=== PATIENT | female | born 1955 | race African-American/Black ===

== ENCOUNTER 2018-12-14 09:00 | Inpatient (IN) | payer MEDICAID ==
[~2018-12-14] VITALS: Ht 160 cm; Wt 74.4 kg
[2018-12-14] MEDS ORDERED: SODIUM CHLORIDE 0.9% 1,000 ML IV ONE (09:17)
[2018-12-14] MEDS ORDERED: MORPHINE SULFATE 4 MG/ML CPJ (NOT FOR IM USE) IV ONE (09:30)
[2018-12-14] MEDS ORDERED: ONDANSETRON HCL 4MG/2ML INJ IV ONE (09:30)
[2018-12-14 10:13] LABS: BASOPHILS % 0.9 % (0.0-2.0); EOSINOPHILS % 0.1 % (0.0-5.0); HEMOGLOBIN. 12.7 g/dL (12.0-16.0); LYMPHOCYTES % 12.1 % (20.0-50.0); MEAN CORPUSCULAR HEMOGLOBIN 29.6 pg (28.0-32.0); MEAN CORPUSCULAR VOLUME 86.3 fL (81.0-99.0); MEAN PLATELET VOLUME 8.1 fl (7.4-10.4); MONOCYTES % 3.5 % (2.0-8.0); NEUTROPHILS % 83.4 % (40.0-76.0); PLATELET 423 x1000/uL (130-400); RED BLOOD CELL COUNT 4.29 mill/uL (4.2-5.4); RED CELL DISTRIBUTION WIDTH 14.6 % (11.6-14.6)
[2018-12-14 10:20] LABS: CHLORIDE 99 mEq/L (98-107)
[2018-12-14 10:26] LABS: D-DIMER 1.68 mg/L FEU (<0.50); INR 1.2; PARTIAL THROMBOPLASTIN TIME 31.6 sec (23.4-31.0)
[2018-12-14] MEDS ORDERED: IOHEXOL-350 100 ML BOTTLE ONE (11:36)
[2018-12-14 14:30] VITALS: BP 156/77
[2018-12-14] MEDS ORDERED: CLONIDINE 0.1MG TABLET PO PRN (15:15)
[2018-12-14] MEDS ORDERED: NA PHOS,M-B/NA PHOS,DI-BA ENEMA 118ML PR PRN (15:15)
[2018-12-14] MEDS ORDERED: DOCUSATE SODIUM 250MG CAPSULE PO PRN (15:15)
[2018-12-14] MEDS ORDERED: HYDROCODONE/ACETAMINOPHEN 10/325MG TABLET PO PRN (15:15)
[2018-12-14 16:00] VITALS: BP 151/90
[2018-12-14] MEDS: ASPIRIN 81MG TABLET PO SCH (17:31)
[2018-12-14] MEDS: ONDANSETRON HCL 4MG/2ML INJ IV PRN ×2 (17:32→21:11)
[2018-12-14] MEDS: ENOXAPARIN 40MG/0.4ML SYR SUBCUT SCH (17:32)
[2018-12-14] MEDS: DOCUSATE SODIUM 100MG CAPSULE PO PRN (19:08)
[2018-12-14 20:00] VITALS: BP 130/77
[2018-12-14] MEDS ORDERED: MAGNESIUM/ALUMINUM HYDROXIDE/SIMETHICONE 30ML UDC PO PRN (20:45)
[2018-12-14] MEDS ORDERED: DIPHENHYDRAMINE 50MG/ML VIAL IV PRN (20:45)
[2018-12-14] MEDS ORDERED: IPRATROPIUM/ALBUTEROL 0.5-3(2.5)MG/3ML NEB INH PRN (20:45)
[2018-12-14] MEDS ORDERED: LORAZEPAM 2MG/ML CPJ IV PRN (20:45)
[2018-12-14] MEDS ORDERED: ACETAMINOPHEN 325MG TABLET PO PRN (20:45)
[2018-12-14] MEDS ORDERED: HYDRALAZINE 20MG/ML VIAL IV PRN (20:45)
[2018-12-14] MEDS ORDERED: GUAIFENESIN 200MG/10ML SUGAR FREE UDC PO PRN (20:45)
[2018-12-14] MEDS: SODIUM CHLORIDE 0.9% INJ 3ML FLUSH IVF SCH (21:11)
[2018-12-14 23:38] LABS: CREATINE KINASE 111 IU/L (26-192)
[2018-12-14 23:39] LABS: CREATINE KINASE MB FRACTION < 1.0 ng/mL (0.5-3.6)
[2018-12-15] VITALS (7 sets, daily range): BP systolic 110–159; BP diastolic 72–108
[2018-12-15] MEDS: ONDANSETRON HCL 4MG/2ML INJ IV PRN ×2 (05:41→17:29)
[2018-12-15] MEDS: DOCUSATE SODIUM 100MG CAPSULE PO PRN (05:41)
[2018-12-15] MEDS: SODIUM CHLORIDE 0.9% INJ 3ML FLUSH IVF SCH ×3 (05:54→21:29)
[2018-12-15 08:03] LABS: BASOPHILS % 0.8 % (0.0-2.0); EOSINOPHILS % 2.3 % (0.0-5.0); HEMATOCRIT. 36.1 % (36.0-48.0); HEMOGLOBIN. 12.1 g/dL (12.0-16.0); LYMPHOCYTES % 20.2 % (20.0-50.0); MEAN CORPUSCULAR HEMOGLOBIN 29.1 pg (28.0-32.0); MEAN CORPUSCULAR VOLUME 86.6 fL (81.0-99.0); MEAN PLATELET VOLUME 7.9 fl (7.4-10.4); MONOCYTES % 7.6 % (2.0-8.0); NEUTROPHILS % 69.1 % (40.0-76.0); PLATELET 404 x1000/uL (130-400); RED BLOOD CELL COUNT 4.17 mill/uL (4.2-5.4)
[2018-12-15 08:36] LABS: CHLORIDE 104 mEq/L (98-107)
[2018-12-15 08:49] LABS: LDL CHOLESTEROL 115 mg/dL (5-100)
[2018-12-15 08:50] LABS: CREATINE KINASE 111 IU/L (26-192)
[2018-12-15 08:51] LABS: HDL CHOLESTEROL 71 mg/dL (40-59); T4 FREE 1.15 ng/dL (0.76-1.46)
[2018-12-15 08:59] LABS: CREATINE KINASE MB FRACTION < 1.0 ng/mL (0.5-3.6)
[2018-12-15] MEDS: ASPIRIN 81MG TABLET PO SCH (09:00)
[2018-12-15] MEDS ORDERED: BISACODYL 10MG SUPP PR NR (10:15)
[2018-12-15] MEDS ORDERED: HYDRALAZINE 20MG/ML VIAL IV PRN (10:15)
[2018-12-15] MEDS: METOCLOPRAMIDE HCL 10MG/2ML VIAL IV PRN ×2 (10:38→20:42)
[2018-12-15] MEDS ORDERED: POTASSIUM CHLORIDE INJ 40 MEQ in DEXT 5% WATER 250 ML IV NR (12:00)
[2018-12-15] MEDS ORDERED: SORBITOL 70% SOLN 30ML PO NR (12:30)
[2018-12-15] MEDS: FAMOTIDINE 20MG/2ML VIAL IV SCH (14:12)
[2018-12-15] MEDS: SODIUM CHLORIDE 0.45% 1,000 ML IV SCH (14:13)
[2018-12-15 15:39] LABS: CREATINE KINASE 105 IU/L (26-192)
[2018-12-15 15:44] LABS: CREATINE KINASE MB FRACTION < 1.0 ng/mL (0.5-3.6)
[2018-12-15] MEDS: ENOXAPARIN 40MG/0.4ML SYR SUBCUT SCH (17:30)
[2018-12-15 19:30] LABS: T4 FREE 1.13 ng/dL (0.76-1.46)
[2018-12-16] VITALS: BP 147/74
[2018-12-16 01:24] LABS: CREATINE KINASE 99 IU/L (26-192)
[2018-12-16 04:00] VITALS: BP 155/88
[2018-12-16] MEDS: SODIUM CHLORIDE 0.9% INJ 3ML FLUSH IVF SCH ×3 (06:42→22:49)
[2018-12-16 07:46] LABS: CREATINE KINASE 95 IU/L (26-192)
[2018-12-16 08:00] VITALS: BP 143/75
[2018-12-16] MEDS: SODIUM CHLORIDE 0.45% 1,000 ML IV SCH (09:53)
[2018-12-16] MEDS: FAMOTIDINE 20MG/2ML VIAL IV SCH (09:53)
[2018-12-16] MEDS: ASPIRIN 81MG TABLET PO SCH (09:53)
[2018-12-16] MEDS ORDERED: GADOBENATE DIMEGLUMINE 529 MG/ML 10ML IV ONE (11:46)
[2018-12-16 12:00] VITALS: BP 133/77
[2018-12-16 16:00] VITALS: BP 149/75
[2018-12-16] MEDS: ENOXAPARIN 40MG/0.4ML SYR SUBCUT SCH (17:34)
[2018-12-16 20:00] VITALS: BP 145/70
[2018-12-17] VITALS: BP 157/88
[2018-12-17] MEDS: SODIUM CHLORIDE 0.45% 1,000 ML IV SCH (02:15)
[2018-12-17 04:00] VITALS: BP 125/77
[2018-12-17] MEDS: SODIUM CHLORIDE 0.9% INJ 3ML FLUSH IVF SCH ×2 (07:07→14:23)
[2018-12-17 08:30] VITALS: BP 130/80
[2018-12-17] MEDS: FAMOTIDINE 20MG/2ML VIAL IV SCH (08:41)
[2018-12-17] MEDS: ASPIRIN 81MG TABLET PO SCH (08:59)
[2018-12-17 10:47] VITALS: BP 152/68
[2018-12-17 12:13] VITALS: BP 146/72
[2018-12-17 16:00] VITALS: BP 140/63
[2018-12-17] MEDS: ENOXAPARIN 40MG/0.4ML SYR SUBCUT SCH (17:18)
== END 2018-12-17 20:32 | disposition home or self-care (01) | DRG 282 ==
LOC: ER 09:00 → 5WST 11:40 → EDBEDREQ 11:45 → ENRESERV 13:30
PROVIDERS: ADMIT Internal Medicine; ATTEND Internal Medicine
DX: K86.89 Other specified diseases of pancreas (principal); E66.9 Obesity, unspecified; R07.89 Other chest pain; E87.6 Hypokalemia; I10 Essential (primary) hypertension; K21.9 Gastro-esophageal reflux disease without esophagitis; K59.00 Constipation, unspecified; Z79.899 Other long term (current) drug therapy; Z88.2 Allergy status to sulfonamides; Z88.8 Allergy status to other drugs, medicaments and biological substances; Z68.29 Body mass index [BMI] 29.0-29.9, adult
CPT/HCPCS: 36415; 71045; 71275; 74174; 74183; 80061; 82550; 82553; 83036; 83880; 84439; 84443; 84484; 85379; 86301; 93005; 93306; 96372; 99285; A9577; J0360; J1200; J1650; J2060; J2270; J2405; J2765; J3480; J3490; J7030; J7060; Q9967

== ENCOUNTER 2019-06-12 14:02 | Inpatient (IN) | payer MEDICAID ==
[~2019-06-12] VITALS: Ht 160 cm; Wt 61.7 kg
[2019-06-12] MEDS ORDERED: MORPHINE SULFATE 4 MG/ML CPJ (NOT FOR IM USE) IV STA (15:02)
[2019-06-12] MEDS ORDERED: SODIUM CHLORIDE 0.9% 1,000 ML IV ONE (15:02)
[2019-06-12] MEDS ORDERED: ONDANSETRON HCL 4MG/2ML INJ IV STA (15:02)
[2019-06-12] MEDS ORDERED: FAMOTIDINE 20MG/2ML VIAL IV ONE (15:15)
[2019-06-12] MEDS ORDERED: DIPHENHYDRAMINE 50MG/ML VIAL IV ONE (15:15)
[2019-06-12] MEDS ORDERED: MAGNESIUM/ALUMINUM HYDROXIDE/SIMETHICONE 30ML UDC PO ONE (15:15)
[2019-06-12 15:19] LABS: BASOPHILS % 0.6 % (0.0-2.0); EOSINOPHILS % 0.7 % (0.0-5.0); HEMATOCRIT. 35.1 % (36.0-48.0); HEMOGLOBIN. 11.9 g/dL (12.0-16.0); LYMPHOCYTES % 13.7 % (20.0-50.0); MEAN CORPUSCULAR HEMOGLOBIN 30.5 pg (28.0-32.0); MEAN PLATELET VOLUME 8.4 fl (7.4-10.4); MONOCYTES % 7.7 % (2.0-8.0); NEUTROPHILS % 77.3 % (40.0-76.0); PLATELET 295 x1000/uL (130-400); RED CELL DISTRIBUTION WIDTH 18.2 % (11.6-14.6)
[2019-06-12 15:23] LABS: CHLORIDE 102 mEq/L (98-107)
[2019-06-12 15:29] LABS: INR 1.5; PARTIAL THROMBOPLASTIN TIME 31.6 sec (23.4-31.0); PROTHROMBIN TIME 15.1 sec (9.6-11.0)
[2019-06-12 15:30] LABS: ETHANOL BLOOD < 10 mg/dL
[2019-06-12 16:36] LABS: CLARITY URINE CLEAR (CLEAR); COLOR URINE YELLOW (YELLOW); KETONES URINE NEGATIVE (NEGATIVE); LEUKOCYTE ESTERASE URINE 3+ (NEGATIVE); NITRITE URINE NEGATIVE (NEGATIVE); OCCULT BLOOD URINE NEGATIVE (NEGATIVE); PH URINE 8.5 (4.5-8.0); PROTEIN URINE TRACE (NEGATIVE); SPECIFIC GRAVITY URINE 1.005 (1.005-1.030); UROBILINOGEN URINE 0.2 E.U./dL (0.2-1.0)
[2019-06-12 16:46] LABS: OPIATES URINE SCREEN NEGATIVE (NEGATIVE)
[2019-06-12 16:48] LABS: *AMPHETAMINES SCREEN URINE NEGATIVE (NEGATIVE); *BARBITURATES SCREEN URINE NEGATIVE (NEGATIVE); *BENZODIAZEPINES SCREEN URINE NEGATIVE (NEGATIVE); *COCAINE SCREEN URINE NEGATIVE (NEGATIVE); CANNABINOID URINE SCREEN NEGATIVE (NEGATIVE); METHADONE URINE SCREEN NEGATIVE (NEGATIVE); PHENCYCLIDINE URINE SCREEN NEGATIVE (NEGATIVE)
[2019-06-12] MEDS ORDERED: KCL 20MEQ/100ML PREMIX 100 ML IV ONE (17:15)
[2019-06-12] MEDS ORDERED: ONDANSETRON HCL 4MG/2ML INJ IV ONE (17:30)
[2019-06-12] MEDS ORDERED: MORPHINE SULFATE 4 MG/ML CPJ (NOT FOR IM USE) IV ONE (17:30)
[2019-06-12] MEDS ORDERED: ACETAMINOPHEN 325MG TABLET PO PRN (18:45)
[2019-06-12] MEDS ORDERED: MAGNESIUM/ALUMINUM HYDROXIDE/SIMETHICONE 30ML UDC PO PRN (18:45)
[2019-06-12] MEDS ORDERED: MAGNESIUM 2 G PREMIX 50 ML IV ONE (18:45)
[2019-06-12] MEDS ORDERED: POTASSIUM CHLORIDE INJ 40 MEQ in DEXT 5% WATER 250 ML IV ONE (18:45)
[2019-06-12] MEDS ORDERED: ONDANSETRON HCL 4MG/2ML INJ IV PRN (18:45)
[2019-06-12] MEDS ORDERED: IPRATROPIUM/ALBUTEROL 0.5-3(2.5)MG/3ML NEB HHN PRN (18:45)
[2019-06-12] MEDS ORDERED: MORPHINE SULFATE 2 MG/ML CPJ (NOT FOR IM USE) IV PRN (19:00)
[2019-06-12] MEDS ORDERED: HYDROCODONE/ACETAMINOPHEN 5/325MG TABLET PO PRN (19:00)
[2019-06-12] MEDS ORDERED: HYDROMORPHONE HCL/PF 2MG/ML CPJ IV PRN (19:00)
[2019-06-12 21:25] VITALS: BP 133/64
[2019-06-12] MEDS ORDERED: POTASSIUM CHLORIDE INJ 40 MEQ in DEXT 5% WATER 250 ML IV SCH (21:45)
[2019-06-12] MEDS ORDERED: DEXT 5%/0.45% NACL KCL 30MEQ/L 1,000 ML IV ONE (22:00)
[2019-06-12] MEDS ORDERED: ONDA4TAB5 MT (23:51)
[2019-06-13] VITALS: BP 133/87
[2019-06-13 01:08] LABS: CREATINE KINASE MB FRACTION < 1.0 ng/mL (0.5-3.6)
[2019-06-13 04:00] VITALS: BP 131/84
[2019-06-13] MEDS ORDERED: MAGNESIUM 2 G PREMIX 50 ML IV SCH (04:00)
[2019-06-13 08:00] VITALS: BP 156/80
[2019-06-13 08:36] LABS: BASOPHILS % 1.3 % (0.0-2.0); EOSINOPHILS % 3.7 % (0.0-5.0); HEMOGLOBIN. 10.7 g/dL (12.0-16.0); LYMPHOCYTES % 22.1 % (20.0-50.0); MEAN CORPUSCULAR HEMOGLOBIN 30.1 pg (28.0-32.0); MEAN PLATELET VOLUME 8.6 fl (7.4-10.4); MONOCYTES % 11.3 % (2.0-8.0); NEUTROPHILS % 61.6 % (40.0-76.0); PLATELET 279 x1000/uL (130-400); RED BLOOD CELL COUNT 3.55 mill/uL (4.2-5.4); RED CELL DISTRIBUTION WIDTH 18.3 % (11.6-14.6)
[2019-06-13 08:38] LABS: CHLORIDE 107 mEq/L (98-107)
[2019-06-13 08:59] LABS: CREATINE KINASE MB FRACTION < 1.0 ng/mL (0.5-3.6)
[2019-06-13] MEDS: DOCUSATE SODIUM 250MG CAPSULE PO SCH (09:36)
[2019-06-13] MEDS: POTASSIUM CHLORIDE 20MEQ TABLET SR PO SCH ×2 (09:36→18:43)
[2019-06-13] MEDS: FAMOTIDINE 20MG/2ML VIAL IV SCH ×2 (09:37→22:17)
[2019-06-13] MEDS: ENOXAPARIN 40MG/0.4ML SYR SUBCUT SCH (09:48)
[2019-06-13 12:00] VITALS: BP 157/80
[2019-06-13] MEDS: CLONIDINE 0.1MG TABLET PO PRN (14:46)
[2019-06-13 16:00] VITALS: BP 147/86
[2019-06-13 20:00] VITALS: BP 135/69
[2019-06-14] VITALS: BP 165/84
[2019-06-14 04:00] VITALS: BP 156/83
[2019-06-14 08:00] VITALS: BP 170/92
[2019-06-14 08:38] LABS: BASOPHILS % 0.6 % (0.0-2.0); EOSINOPHILS % 2.7 % (0.0-5.0); HEMOGLOBIN. 10.9 g/dL (12.0-16.0); LYMPHOCYTES % 22.2 % (20.0-50.0); MEAN CORPUSCULAR HEMOGLOBIN 30.6 pg (28.0-32.0); MEAN CORPUSCULAR VOLUME 89.7 fL (81.0-99.0); MEAN PLATELET VOLUME 8.8 fl (7.4-10.4); MONOCYTES % 11.1 % (2.0-8.0); NEUTROPHILS % 63.4 % (40.0-76.0); PLATELET 302 x1000/uL (130-400); RED BLOOD CELL COUNT 3.56 mill/uL (4.2-5.4); RED CELL DISTRIBUTION WIDTH 18.2 % (11.6-14.6)
[2019-06-14] MEDS: FAMOTIDINE 20MG/2ML VIAL IV SCH (08:47)
[2019-06-14] MEDS: CLONIDINE 0.1MG TABLET PO PRN (08:47)
[2019-06-14] MEDS: POTASSIUM CHLORIDE 20MEQ TABLET SR PO SCH (08:47)
[2019-06-14] MEDS: DOCUSATE SODIUM 250MG CAPSULE PO SCH (08:47)
[2019-06-14] MEDS: ENOXAPARIN 40MG/0.4ML SYR SUBCUT SCH (08:49)
[2019-06-14 08:51] LABS: CHLORIDE 109 mEq/L (98-107)
[2019-06-14] MEDS ORDERED: DOCU250C14 PO (09:42)
[2019-06-14] MEDS ORDERED: PANT40TA4 MT (09:42)
[2019-06-14] MEDS ORDERED: ONDA4TAB5 MT (09:42)
[2019-06-14 11:21] VITALS: BP 155/88
[2019-06-14 12:00] VITALS: BP 155/88
[2019-06-14] MEDS ORDERED: HYDR-3281 MT (15:30)
== END 2019-06-14 14:25 | disposition home or self-care (01) | DRG 241 ==
LOC: ER 14:02 → 7WST 18:14 → EDBEDREQTM 18:17 → EDBEDREQ 18:17 → ENRESERV 20:38
PROVIDERS: ADMIT Internal Medicine Geriatric Medicine; ATTEND Internal Medicine Geriatric Medicine
DX: K29.70 Gastritis, unspecified, without bleeding (principal); C25.9 Malignant neoplasm of pancreas, unspecified; E86.0 Dehydration; D63.8 Anemia in other chronic diseases classified elsewhere; E78.00 Pure hypercholesterolemia, unspecified; E87.6 Hypokalemia; I10 Essential (primary) hypertension; Z88.6 Allergy status to analgesic agent; Z88.2 Allergy status to sulfonamides; Z92.21 Personal history of antineoplastic chemotherapy
CPT/HCPCS: 36415; 71045; 74176; 80053; 80305; 80320; 81003; 82553; 83605; 83735; 83880; 84484; 85025; 93005; 93306; 97162; 99285; J1200; J1650; J2270; J2405; J3475; J3480; J3490; J7030; J7060; G0480

== ENCOUNTER 2019-06-18 16:43 | Inpatient (IN) | payer MEDICAID ==
[~2019-06-18] VITALS: Ht 160 cm; Wt 63.5 kg
[~2019-06-18 16:43] MED LIST: DOCU250C14 PO; HYDR-3281 MT; ONDA4TAB5 MT; PANT40TA4 MT
[2019-06-18] MEDS ORDERED: KETOROLAC 30MG/ML VIAL IV STA (17:34)
[2019-06-18] MEDS ORDERED: ONDANSETRON HCL 4MG/2ML INJ IV STA (17:34)
[2019-06-18] MEDS ORDERED: SODIUM CHLORIDE 0.9% 1,000 ML IV ONE (17:34)
[2019-06-18 18:39] LABS: HEMATOCRIT. 34.6 % (36.0-48.0); HEMOGLOBIN. 11.8 g/dL (12.0-16.0); MEAN CORPUSCULAR HEMOGLOBIN 30.6 pg (28.0-32.0); MEAN CORPUSCULAR VOLUME 89.9 fL (81.0-99.0); MEAN PLATELET VOLUME 8.1 fl (7.4-10.4); PLATELET 316 x1000/uL (130-400); RED BLOOD CELL COUNT 3.85 mill/uL (4.2-5.4); RED CELL DISTRIBUTION WIDTH 17.7 % (11.6-14.6)
[2019-06-18 18:46] LABS: CHLORIDE 99 mEq/L (98-107)
[2019-06-18 18:49] LABS: INR 1.5; PARTIAL THROMBOPLASTIN TIME 32.7 sec (23.4-31.0); PROTHROMBIN TIME 15.4 sec (9.6-11.0)
[2019-06-18 19:05] LABS: CLARITY URINE CLOUDY (CLEAR); COLOR URINE ORANGE (YELLOW); KETONES URINE 3+ (NEGATIVE); LEUKOCYTE ESTERASE URINE 2+ (NEGATIVE); NITRITE URINE POSITIVE (NEGATIVE); OCCULT BLOOD URINE 1+ (NEGATIVE); PH URINE 6.5 (4.5-8.0); PROTEIN URINE 1+ (NEGATIVE); SPECIFIC GRAVITY URINE 1.021 (1.005-1.030)
[2019-06-18] MEDS ORDERED: CEFTRIAXONE 1 G PREMIX 50 ML IV ONE (19:15)
[2019-06-18 19:23] LABS: PLATELET ESTIMATE NORMAL
[2019-06-18] MEDS ORDERED: ONDANSETRON HCL 4MG/2ML INJ IV PRN (20:45)
[2019-06-18] MEDS ORDERED: ACETAMINOPHEN 650MG SUPP PR PRN (20:45)
[2019-06-19] MEDS ORDERED: HEPARIN 5000 UNITS/ML VIAL SUBCUT SCH ×2 (01:15→14:00)
[2019-06-19 06:07] LABS: HEMATOCRIT. 30.7 % (36.0-48.0); HEMOGLOBIN. 10.4 g/dL (12.0-16.0); MEAN CORPUSCULAR HEMOGLOBIN 30.2 pg (28.0-32.0); MEAN CORPUSCULAR VOLUME 88.8 fL (81.0-99.0); MEAN PLATELET VOLUME 8.1 fl (7.4-10.4); PLATELET 277 x1000/uL (130-400); RED BLOOD CELL COUNT 3.46 mill/uL (4.2-5.4); RED CELL DISTRIBUTION WIDTH 17.8 % (11.6-14.6)
[2019-06-19 06:13] LABS: CHLORIDE 103 mEq/L (98-107)
[2019-06-19 07:13] LABS: PLATELET ESTIMATE NORMAL
[2019-06-19] MEDS ORDERED: PIPERACILLIN/TAZOBACTAM 3.375 G in DEXTROSE 5% WATER 50 ML IV SCH (08:30)
[2019-06-19] MEDS ORDERED: [UNRECOGNIZED DRUG - MIXTURE] IV SCH (09:00)
[2019-06-19] MEDS: PIPERACILLIN/TAZ 2.25G PREMIX 50 ML IV SCH ×2 (09:50→14:04)
[2019-06-19] MEDS ORDERED: HYDROMORPHONE HCL/PF 2MG/ML CPJ IV PRN (11:00)
[2019-06-19] MEDS: HYDROMORPHONE HCL/PF 2MG/ML CPJ IV PRN ×2 (12:03→20:20)
[2019-06-19] MEDS ORDERED: HYDRALAZINE 20MG/ML VIAL IV PRN (12:45)
[2019-06-19] MEDS ORDERED: MAGNESIUM HYDROXIDE 400MG/5ML 30ML UDC PO PRN (14:15)
[2019-06-19] MEDS ORDERED: MAGNESIUM 2 G PREMIX 50 ML IV SCH (15:00)
[2019-06-19] MEDS: DOCUSATE SODIUM 250MG CAPSULE PO SCH (15:55)
[2019-06-19 16:00] VITALS: BP 152/85
[2019-06-19] MEDS: PANTOPRAZOLE SODIUM 40 MG/VIAL IV SCH (16:02)
[2019-06-19 16:07] VITALS: BP 152/85
[2019-06-19 16:25] VITALS: BP 152/85
[2019-06-19] MEDS: PIPERACILLIN/TAZOBACTAM 2.25 G in DEXTROSE 5% WATER 50 ML IV SCH (17:36)
[2019-06-19] MEDS ORDERED: PIPERACILLIN/TAZOBACTAM 3.375 G in DEXT 5% WATER 100 ML IV SCH (18:00)
[2019-06-19 20:16] VITALS: BP 150/90
[2019-06-19] MEDS ORDERED: SENNOSIDES/DOCUSATE SOD 8.6/50MG TABLET PO PRN (21:00)
[2019-06-19] MEDS: DEXT 5%/0.9% NACL 1,000 ML IV SCH ×2 (22:02→22:04)
[2019-06-19] MEDS: HEPARIN 5000 UNITS/ML VIAL SUBCUT SCH (22:03)
[2019-06-20] VITALS: BP 144/85
[2019-06-20] MEDS: PIPERACILLIN/TAZOBACTAM 2.25 G in DEXTROSE 5% WATER 50 ML IV SCH ×4 (00:29→17:36)
[2019-06-20] MEDS: HYDROMORPHONE HCL/PF 2MG/ML CPJ IV PRN ×3 (03:28→22:13)
[2019-06-20 04:00] VITALS: BP 140/81
[2019-06-20 08:00] VITALS: BP 142/83
[2019-06-20] MEDS: DOCUSATE SODIUM 250MG CAPSULE PO SCH (10:14)
[2019-06-20] MEDS: PANTOPRAZOLE SODIUM 40 MG/VIAL IV SCH (10:14)
[2019-06-20] MEDS: DEXT 5%/0.9% NACL 1,000 ML IV SCH (10:16)
[2019-06-20] MEDS: HEPARIN 5000 UNITS/ML VIAL SUBCUT SCH ×2 (10:18→22:15)
[2019-06-20 12:00] VITALS: BP 145/81
[2019-06-20 16:00] VITALS: BP 141/80
[2019-06-20 20:00] VITALS: BP 152/80
[2019-06-21] VITALS: BP 135/66
[2019-06-21] MEDS: PIPERACILLIN/TAZOBACTAM 2.25 G in DEXTROSE 5% WATER 50 ML IV SCH ×4 (00:10→18:08)
[2019-06-21] MEDS: DEXT 5%/0.9% NACL 1,000 ML IV SCH ×3 (00:15→22:24)
[2019-06-21] MEDS: HYDROMORPHONE HCL/PF 2MG/ML CPJ IV PRN ×4 (02:45→23:00)
[2019-06-21 04:00] VITALS: BP 146/72
[2019-06-21 06:38] LABS: EOSINOPHILS % 2.6 % (0.0-5.0); HEMATOCRIT. 28.9 % (36.0-48.0); HEMOGLOBIN. 9.9 g/dL (12.0-16.0); LYMPHOCYTES % 26.6 % (20.0-50.0); MEAN CORPUSCULAR HEMOGLOBIN 31.1 pg (28.0-32.0); MEAN CORPUSCULAR VOLUME 90.3 fL (81.0-99.0); MEAN PLATELET VOLUME 8.4 fl (7.4-10.4); MONOCYTES % 9.4 % (2.0-8.0); NEUTROPHILS % 60.4 % (40.0-76.0); PLATELET 272 x1000/uL (130-400); RED CELL DISTRIBUTION WIDTH 17.9 % (11.6-14.6)
[2019-06-21 07:06] LABS: CHLORIDE 107 mEq/L (98-107)
[2019-06-21 08:00] VITALS: BP 141/86
[2019-06-21] MEDS: DOCUSATE SODIUM 250MG CAPSULE PO SCH (08:19)
[2019-06-21] MEDS: FAMOTIDINE 20MG/2ML VIAL IV SCH (08:19)
[2019-06-21] MEDS: HEPARIN 5000 UNITS/ML VIAL SUBCUT SCH ×2 (08:19→22:56)
[2019-06-21 12:00] VITALS: BP 146/61
[2019-06-21 16:00] VITALS: BP 116/75
[2019-06-21 20:00] VITALS: BP 149/95
[2019-06-22] VITALS: BP 104/68
[2019-06-22] MEDS: PIPERACILLIN/TAZOBACTAM 2.25 G in DEXTROSE 5% WATER 50 ML IV SCH ×3 (00:14→13:03)
[2019-06-22 04:00] VITALS: BP 152/79
[2019-06-22 07:32] LABS: BASOPHILS % 0.5 % (0.0-2.0); HEMATOCRIT. 29.6 % (36.0-48.0); HEMOGLOBIN. 10.2 g/dL (12.0-16.0); LYMPHOCYTES % 32.4 % (20.0-50.0); MEAN CORPUSCULAR HEMOGLOBIN 31.1 pg (28.0-32.0); MEAN CORPUSCULAR VOLUME 90.6 fL (81.0-99.0); MEAN PLATELET VOLUME 8.2 fl (7.4-10.4); MONOCYTES % 8.3 % (2.0-8.0); NEUTROPHILS % 56.8 % (40.0-76.0); PLATELET 295 x1000/uL (130-400); RED BLOOD CELL COUNT 3.26 mill/uL (4.2-5.4); RED CELL DISTRIBUTION WIDTH 18.3 % (11.6-14.6)
[2019-06-22 08:00] VITALS: BP 129/84
[2019-06-22 08:11] LABS: CHLORIDE 106 mEq/L (98-107)
[2019-06-22] MEDS: HEPARIN 5000 UNITS/ML VIAL SUBCUT SCH (09:16)
[2019-06-22] MEDS: FAMOTIDINE 20MG/2ML VIAL IV SCH (09:16)
[2019-06-22] MEDS: DOCUSATE SODIUM 250MG CAPSULE PO SCH (09:16)
[2019-06-22 12:00] VITALS: BP 153/80
[2019-06-22] MEDS ORDERED: POTASSIUM CHLORIDE 20MEQ/PACKET PO NR (13:00)
[2019-06-22] MEDS: KCL 20MEQ/100ML PREMIX 100 ML IV SCH ×2 (13:01→13:03)
[2019-06-22] MEDS: DEXT 5%/0.9% NACL 1,000 ML IV SCH (13:04)
[2019-06-22 15:40] VITALS: BP 135/74
== END 2019-06-22 16:46 | disposition home or self-care (01) | DRG 281 ==
LOC: ER 16:43 → 7WST 20:35 → ENRESERV 06-19 14:21
PROVIDERS: ADMIT Internal Medicine; ATTEND Internal Medicine
DX: C25.0 Malignant neoplasm of head of pancreas (principal); E43 Unspecified severe protein-calorie malnutrition; K85.90 Acute pancreatitis without necrosis or infection, unspecified; K83.1 Obstruction of bile duct; K56.7 Ileus, unspecified; E83.42 Hypomagnesemia; K75.9 Inflammatory liver disease, unspecified; E78.5 Hyperlipidemia, unspecified; I10 Essential (primary) hypertension; R62.7 Adult failure to thrive; E87.6 Hypokalemia; Z90.49 Acquired absence of other specified parts of digestive tract; Z68.24 Body mass index [BMI] 24.0-24.9, adult; Z88.6 Allergy status to analgesic agent; Z88.2 Allergy status to sulfonamides; Z79.899 Other long term (current) drug therapy
CPT/HCPCS: 36415; 71045; 74021; 74176; 80048; 80053; 80076; 81003; 83735; 83880; 84484; 85025; 86301; 93005; 99285; C9113; J0696; J1170; J1644; J1885; J2405; J2543; J3480; J3490; J7030; J7042; J7060

== ENCOUNTER 2019-07-28 15:29 | Emergency (ER) | payer MEDICAID ==
[~2019-07-28] VITALS: Ht 167.6 cm; Wt 73.0 kg
[2019-07-28] MEDS ORDERED: ONDANSETRON HCL 4MG/2ML INJ IV STA (16:21)
[2019-07-28] MEDS ORDERED: SODIUM CHLORIDE 0.9% 1,000 ML IV ONE (16:21)
[2019-07-28] MEDS ORDERED: HYDROMORPHONE HCL/PF 2MG/ML CPJ IV ONE (16:30)
[2019-07-28 17:02] LABS: BASOPHILS % 0.2 % (0.0-2.0); EOSINOPHILS % 0.2 % (0.0-5.0); HEMOGLOBIN. 9.9 g/dL (12.0-16.0); LYMPHOCYTES % 10.3 % (20.0-50.0); MEAN CORPUSCULAR VOLUME 94.1 fL (81.0-99.0); MEAN PLATELET VOLUME 7.4 fl (7.4-10.4); NEUTROPHILS % 85.3 % (40.0-76.0); PLATELET 474 x1000/uL (130-400); RED BLOOD CELL COUNT 3.08 mill/uL (4.2-5.4)
[2019-07-28 17:07] LABS: INR 1.3; PROTHROMBIN TIME 13.8 sec (9.6-11.0)
[2019-07-28 17:08] LABS: CHLORIDE 103 mEq/L (98-107)
[2019-07-28] MEDS ORDERED: POTASSIUM CHLORIDE 20MEQ TABLET SR PO ONE (17:30)
[2019-07-28] MEDS ORDERED: SODIUM CHLORIDE 0.9% 1000ML BAG (SEPSIS BOLUS) IV ONE (18:00)
[2019-07-28] MEDS ORDERED: PIPERACILLIN/TAZ 3.375G PREMIX 50 ML IV ONE (18:00)
[2019-07-28] MEDS ORDERED: KETOROLAC 15MG/ML VIAL IV ONE (20:30)
[2019-07-28] MEDS ORDERED: CLONIDINE 0.1MG TABLET PO PRN (21:30)
[2019-07-28] MEDS ORDERED: DIPHENHYDRAMINE 50MG/ML VIAL IV PRN (21:30)
[2019-07-28] MEDS ORDERED: PIPERACILLIN/TAZ 3.375G PREMIX 50 ML IV SCH (21:30)
[2019-07-28] MEDS ORDERED: LORAZEPAM 2MG/ML CPJ IV PRN (21:30)
[2019-07-28] MEDS ORDERED: GUAIFENESIN 200MG/10ML SUGAR FREE UDC PO PRN (21:30)
[2019-07-28] MEDS ORDERED: HYDRALAZINE 20MG/ML VIAL IV PRN (21:30)
[2019-07-28] MEDS ORDERED: IPRATROPIUM/ALBUTEROL 0.5-3(2.5)MG/3ML NEB HHN PRN (21:30)
[2019-07-28] MEDS ORDERED: ENOXAPARIN 40MG/0.4ML SYR SUBCUT SCH (21:30)
[2019-07-28] MEDS ORDERED: ONDANSETRON HCL 4MG/2ML INJ IV PRN (21:30)
[2019-07-28] MEDS ORDERED: MAGNESIUM/ALUMINUM HYDROXIDE/SIMETHICONE 30ML UDC PO PRN (21:30)
[2019-07-28] MEDS ORDERED: ACETAMINOPHEN 325MG TABLET PO PRN (21:30)
[2019-07-28] MEDS ORDERED: DOCUSATE SODIUM 100MG CAPSULE PO PRN (21:30)
[2019-07-28 22:00] VITALS: BP 101/54
[2019-07-28] MEDS ORDERED: SODIUM CHLORIDE 0.9% INJ 3ML FLUSH IVF SCH (22:00)
[2019-07-28] MEDS ORDERED: DEXT 5%/0.45% NACL 1000ML 1,000 ML IV SCH (22:00)
[2019-07-29 01:31] LABS: CREATINE KINASE 26 IU/L (26-192)
[2019-07-29 01:32] LABS: CREATINE KINASE MB FRACTION < 1.0 ng/mL (0.5-3.6)
== END 2019-07-29 05:38 | disposition left against medical advice (07) ==
LOC: ER 15:29 → EDBEDREQ 18:32 → EDBEDREQTM 18:32 → ER 07-29 05:38 → CANBEDREQ 07-29 15:53
DX: A41.9 Sepsis, unspecified organism (principal); E86.0 Dehydration; E87.6 Hypokalemia; I12.0 Hypertensive chronic kidney disease with stage 5 chronic kidney disease or end stage renal disease; N18.6 End stage renal disease; E78.00 Pure hypercholesterolemia, unspecified; D64.9 Anemia, unspecified; C80.1 Malignant (primary) neoplasm, unspecified; E87.2 Acidosis; E46 Unspecified protein-calorie malnutrition; Z93.1 Gastrostomy status; Z68.26 Body mass index [BMI] 26.0-26.9, adult; Z99.2 Dependence on renal dialysis; Z92.21 Personal history of antineoplastic chemotherapy; Z88.2 Allergy status to sulfonamides; Z88.6 Allergy status to analgesic agent; Z79.899 Other long term (current) drug therapy; Z88.8 Allergy status to other drugs, medicaments and biological substances; Z98.890 Other specified postprocedural states; Z90.49 Acquired absence of other specified parts of digestive tract
CPT/HCPCS: 36415; 71045; 76700; 80053; 82550; 82553; 83605; 83690; 83880; 84145; 84484; 85025; 85610; 87040; 87077; 87186; 93005; 93970; 96361; 96365; 96366; 96375; 99285; J1170; J1885; J2060; J2405; J2543; J7030

== ENCOUNTER 2019-08-21 10:21 | Inpatient (IN) | payer MEDICAID ==
[~2019-08-21] VITALS: Ht 160 cm; Wt 66.2 kg
[2019-08-21] MEDS ORDERED: HYDROMORPHONE HCL/PF 2MG/ML CPJ IV ONE (11:30)
[2019-08-21 11:41] LABS: CHLORIDE 110 mEq/L (98-107)
[2019-08-21 11:42] LABS: PARTIAL THROMBOPLASTIN TIME 31.5 sec (23.4-31.0); PROTHROMBIN TIME 21.6 sec (9.6-11.0)
[2019-08-21 11:50] LABS: HEMATOCRIT. 27.8 % (36.0-48.0); MEAN CORPUSCULAR HEMOGLOBIN 28.8 pg (28.0-32.0); MEAN CORPUSCULAR VOLUME 88.8 fL (81.0-99.0); MEAN PLATELET VOLUME 7.9 fl (7.4-10.4); PLATELET 365 x1000/uL (130-400); RED BLOOD CELL COUNT 3.13 mill/uL (4.2-5.4); RED CELL DISTRIBUTION WIDTH 18.4 % (11.6-14.6)
[2019-08-21 12:18] LABS: PLATELET ESTIMATE NORMAL
[2019-08-21] MEDS ORDERED: SODIUM CHLORIDE 0.9% 250 ML IV ONE (13:15)
[2019-08-21] MEDS ORDERED: PIPERACILLIN/TAZ 3.375G PREMIX 50 ML IV ONE (14:45)
[2019-08-21] MEDS ORDERED: DIATR MEGLU/DIATRIZOATE SOLN 30ML ONE (15:06)
[2019-08-21] MEDS ORDERED: HYDRALAZINE 20MG/ML VIAL IV PRN (18:15)
[2019-08-21] MEDS ORDERED: CLONIDINE 0.1MG TABLET PO PRN (18:15)
[2019-08-21] MEDS ORDERED: MAGNESIUM/ALUMINUM HYDROXIDE/SIMETHICONE 30ML UDC PO PRN (18:15)
[2019-08-21] MEDS ORDERED: DIPHENHYDRAMINE 50MG/ML VIAL IV PRN (18:15)
[2019-08-21] MEDS ORDERED: GUAIFENESIN 200MG/10ML SUGAR FREE UDC PO PRN (18:15)
[2019-08-21] MEDS ORDERED: DOCUSATE SODIUM 100MG CAPSULE PO PRN (18:15)
[2019-08-21] MEDS ORDERED: DEXTROSE 50% WATER 50ML SYRINGE IV PRN (18:15)
[2019-08-21] MEDS ORDERED: IPRATROPIUM/ALBUTEROL 0.5-3(2.5)MG/3ML NEB NEB PRN (18:15)
[2019-08-21] MEDS ORDERED: ACETAMINOPHEN 325MG TABLET PO PRN (18:15)
[2019-08-21] MEDS ORDERED: ENOXAPARIN 60MG/0.6ML SYR SUBCUT ONE (18:30)
[2019-08-21] MEDS: DEXT 5%/0.45% NACL 1000ML 1,000 ML IV SCH (20:39)
[2019-08-21] MEDS: HYDROMORPHONE HCL/PF 2MG/ML CPJ IV PRN (20:40)
[2019-08-21] MEDS ORDERED: PIPERACILLIN/TAZOBACTAM 3.375 G in DEXT 5% WATER 100 ML IV SCH (21:00)
[2019-08-21] MEDS ORDERED: ENOXAPARIN 80MG/0.8ML SYR SUBCUT ONE (21:00)
[2019-08-21 23:35] LABS: CREATINE KINASE 22 IU/L (26-192)
[2019-08-21 23:36] LABS: CREATINE KINASE MB FRACTION < 1.0 ng/mL (0.5-3.6)
[2019-08-22] MEDS: LORAZEPAM 2MG/ML CPJ IV PRN (04:26)
[2019-08-22] MEDS ORDERED: PIPERACILLIN/TAZ 3.375G PREMIX 50 ML IV SCH (05:00)
[2019-08-22 06:02] LABS: HEMATOCRIT. 23.4 % (36.0-48.0); HEMOGLOBIN. 7.7 g/dL (12.0-16.0); MEAN PLATELET VOLUME 7.1 fl (7.4-10.4); PLATELET 301 x1000/uL (130-400); RED BLOOD CELL COUNT 2.66 mill/uL (4.2-5.4); RED CELL DISTRIBUTION WIDTH 18.8 % (11.6-14.6)
[2019-08-22 06:09] LABS: CHLORIDE 100 mEq/L (98-107)
[2019-08-22 06:21] LABS: CREATINE KINASE MB FRACTION < 1.0 ng/mL (0.5-3.6); LDL CHOLESTEROL 72 mg/dL (5-100)
[2019-08-22 06:22] LABS: CREATINE KINASE 21 IU/L (26-192); HDL CHOLESTEROL 25 mg/dL (40-59); T4 FREE 1.06 ng/dL (0.76-1.46)
[2019-08-22 07:23] LABS: PLATELET ESTIMATE NORMAL
[2019-08-22 11:35] VITALS: BP 144/84
[2019-08-22 12:00] VITALS: BP 144/84
[2019-08-22] MEDS ORDERED: [UNRECOGNIZED DRUG - CODE] MT (13:37)
[2019-08-22] MEDS ORDERED: HYDR8TAB44 PO (13:39)
[2019-08-22] MEDS ORDERED: [UNRECOGNIZED DRUG - OTHER] (13:42)
[2019-08-22] MEDS ORDERED: XAR15 PO (13:42)
[2019-08-22] MEDS ORDERED: PANT40TA4 PO (13:46)
[2019-08-22] MEDS ORDERED: ONDA4TAB11 PO (13:46)
[2019-08-22] MEDS ORDERED: DIPH1TAB24 MT (13:46)
[2019-08-22] MEDS: SODIUM CHLORIDE 0.9% INJ 3ML FLUSH IVF SCH ×3 (15:24→22:25)
[2019-08-22] MEDS: ENOXAPARIN 80MG/0.8ML SYR SUBCUT SCH ×2 (15:25→20:25)
[2019-08-22] MEDS: PIPERACILLIN/TAZOBACTAM 3.375 G in DEXT 5% WATER 100 ML IV SCH ×2 (15:25→18:18)
[2019-08-22] MEDS: HYDROMORPHONE HCL/PF 2MG/ML CPJ IV PRN (15:26)
[2019-08-22] MEDS: DEXT 5%/0.45% NACL 1000ML 1,000 ML IV SCH (15:28)
[2019-08-22 16:30] VITALS: BP 126/69
[2019-08-22 17:22] LABS: CREATINE KINASE 29 IU/L (26-192)
[2019-08-22 17:23] LABS: CREATINE KINASE MB FRACTION < 1.0 ng/mL (0.5-3.6)
[2019-08-22] MEDS ORDERED: POTASSIUM CHLORIDE INJ 40 MEQ in DEXT 5% WATER 250 ML IV ONE (18:00)
[2019-08-22] MEDS: HYDROCODONE/ACETAMINOPHEN 10/325MG TABLET PO PRN (18:18)
[2019-08-22 20:00] VITALS: BP 145/78
[2019-08-22 23:57] LABS: CREATINE KINASE 20 IU/L (26-192); CREATINE KINASE MB FRACTION < 1.0 ng/mL (0.5-3.6)
[2019-08-23] VITALS (14 sets, daily range): BP systolic 94–151; BP diastolic 60–88
[2019-08-23] MEDS: PIPERACILLIN/TAZOBACTAM 3.375 G in DEXT 5% WATER 100 ML IV SCH ×3 (00:48→13:47)
[2019-08-23] MEDS: SODIUM CHLORIDE 0.9% INJ 3ML FLUSH IVF SCH ×3 (06:21→21:13)
[2019-08-23 07:26] LABS: MEAN CORPUSCULAR HEMOGLOBIN 28.6 pg (28.0-32.0); MEAN CORPUSCULAR VOLUME 88.7 fL (81.0-99.0); MEAN PLATELET VOLUME 7.7 fl (7.4-10.4); PLATELET 270 x1000/uL (130-400); RED BLOOD CELL COUNT 2.04 mill/uL (4.2-5.4); RED CELL DISTRIBUTION WIDTH 18.4 % (11.6-14.6)
[2019-08-23 08:02] LABS: CHLORIDE 103 mEq/L (98-107)
[2019-08-23 08:15] LABS: CREATINE KINASE 19 IU/L (26-192)
[2019-08-23 08:20] LABS: CREATINE KINASE MB FRACTION < 1.0 ng/mL (0.5-3.6)
[2019-08-23 08:25] LABS: HEMATOCRIT. 18.1 % (36.0-48.0); HEMOGLOBIN. 5.8 g/dL (12.0-16.0)
[2019-08-23] MEDS ORDERED: ENOXAPARIN 60MG/0.6ML SYR SUBCUT SCH (09:00)
[2019-08-23] MEDS ORDERED: POTASSIUM CHLORIDE INJ 40 MEQ in DEXT 5% WATER 250 ML IV SCH (10:00)
[2019-08-23] MEDS: DEXT 5%/0.45% NACL 1000ML 1,000 ML IV SCH (13:56)
[2019-08-23] MEDS: HYDROMORPHONE HCL/PF 2MG/ML CPJ IV PRN ×2 (14:11→20:28)
[2019-08-23] MEDS: HYDROCODONE/ACETAMINOPHEN 10/325MG TABLET PO PRN (16:45)
[2019-08-23] MEDS: CEFTRIAXONE 1 G PREMIX 50 ML IV SCH (19:10)
[2019-08-23] MEDS: METRONIDAZOLE 500 MG PREMIX 100 ML IV SCH (21:13)
[2019-08-23 21:25] LABS: HEMATOCRIT 23.9 % (36.0-48.0); HEMOGLOBIN 7.9 g/dL (12.0-16.0)
[2019-08-24] VITALS (8 sets, daily range): BP systolic 122–158; BP diastolic 79–104
[2019-08-24] MEDS: HYDROMORPHONE HCL/PF 2MG/ML CPJ IV PRN ×5 (01:50→23:55)
[2019-08-24] MEDS: DEXT 5%/0.45% NACL 1000ML 1,000 ML IV SCH ×3 (02:06→21:40)
[2019-08-24] MEDS: SODIUM CHLORIDE 0.9% INJ 3ML FLUSH IVF SCH ×3 (05:17→21:39)
[2019-08-24 06:51] LABS: HEMATOCRIT. 28.4 % (36.0-48.0); HEMOGLOBIN. 9.6 g/dL (12.0-16.0); MEAN CORPUSCULAR HEMOGLOBIN 29.7 pg (28.0-32.0); MEAN CORPUSCULAR VOLUME 87.8 fL (81.0-99.0); MEAN PLATELET VOLUME 7.6 fl (7.4-10.4); PLATELET 207 x1000/uL (130-400); RED BLOOD CELL COUNT 3.23 mill/uL (4.2-5.4); RED CELL DISTRIBUTION WIDTH 18.1 % (11.6-14.6)
[2019-08-24 07:38] LABS: CHLORIDE 106 mEq/L (98-107)
[2019-08-24 08:12] LABS: PLATELET ESTIMATE NORMAL
[2019-08-24] MEDS: METRONIDAZOLE 500 MG PREMIX 100 ML IV SCH ×2 (09:46→21:39)
[2019-08-24 10:26] LABS: PLATELET ESTIMATE NORMAL
[2019-08-24] MEDS ORDERED: KCL 20MEQ/100ML PREMIX 100 ML IV NR (12:00)
[2019-08-24 13:30] LABS: INR 1.7; PARTIAL THROMBOPLASTIN TIME 32.9 sec (23.4-31.0); PROTHROMBIN TIME 18.7 sec (9.6-11.0)
[2019-08-24] MEDS ORDERED: HYDROMORPHONE HCL/PF 2MG/ML CPJ IV PRN (13:45)
[2019-08-24] MEDS: CEFTRIAXONE 1 G PREMIX 50 ML IV SCH (18:30)
[2019-08-25] MEDS: LORAZEPAM 2MG/ML CPJ IV PRN (01:24)
[2019-08-25 04:00] VITALS: BP_SYST 128; BP_SYST 132; BP_DIAS 66; BP_DIAS 80
[2019-08-25] MEDS: SODIUM CHLORIDE 0.9% INJ 3ML FLUSH IVF SCH ×3 (05:37→21:18)
[2019-08-25 06:51] LABS: CHLORIDE 106 mEq/L (98-107)
[2019-08-25 08:00] VITALS: BP 178/91
[2019-08-25] MEDS: METRONIDAZOLE 500 MG PREMIX 100 ML IV SCH ×2 (08:21→21:18)
[2019-08-25 09:57] LABS: HEMATOCRIT. 31.9 % (36.0-48.0); HEMOGLOBIN. 10.6 g/dL (12.0-16.0); MEAN CORPUSCULAR HEMOGLOBIN 29.5 pg (28.0-32.0); MEAN CORPUSCULAR VOLUME 88.6 fL (81.0-99.0); MEAN PLATELET VOLUME 7.5 fl (7.4-10.4); PLATELET 150 x1000/uL (130-400); RED CELL DISTRIBUTION WIDTH 18.8 % (11.6-14.6)
[2019-08-25 10:21] LABS: CLARITY URINE CLEAR (CLEAR); COLOR URINE DARK YELLOW (YELLOW); KETONES URINE NEGATIVE (NEGATIVE); LEUKOCYTE ESTERASE URINE TRACE (NEGATIVE); NITRITE URINE NEGATIVE (NEGATIVE); OCCULT BLOOD URINE NEGATIVE (NEGATIVE); PH URINE 7.5 (4.5-8.0); PROTEIN URINE 1+ (NEGATIVE); SPECIFIC GRAVITY URINE 1.016 (1.005-1.030); UROBILINOGEN URINE 0.2 E.U./dL (0.2-1.0)
[2019-08-25] MEDS: HYDROMORPHONE HCL/PF 2MG/ML CPJ IV PRN ×2 (10:59→15:20)
[2019-08-25 12:00] VITALS: BP 140/88
[2019-08-25 12:22] LABS: PLATELET ESTIMATE NORMAL
[2019-08-25] MEDS ORDERED: ENOXAPARIN 60MG/0.6ML SYR SUBCUT SCH (13:00)
[2019-08-25] MEDS: ENOXAPARIN 60MG/0.6ML SYR SUBCUT SCH (15:19)
[2019-08-25] MEDS: DEXT 5%/0.45% NACL 1000ML 1,000 ML IV SCH (15:20)
[2019-08-25 16:00] VITALS: BP 124/84
[2019-08-25] MEDS: CEFTRIAXONE 1 G PREMIX 50 ML IV SCH (17:13)
[2019-08-25 20:00] VITALS: BP 112/75
[2019-08-25 20:22] LABS: INR 1.9; PROTHROMBIN TIME 20.2 sec (9.6-11.0)
[2019-08-25 23:20] LABS: HEMATOCRIT. 27.2 % (36.0-48.0); HEMOGLOBIN. 9.1 g/dL (12.0-16.0); MEAN CORPUSCULAR HEMOGLOBIN 29.2 pg (28.0-32.0); MEAN CORPUSCULAR VOLUME 87.8 fL (81.0-99.0); MEAN PLATELET VOLUME 7.8 fl (7.4-10.4); PLATELET 136 x1000/uL (130-400)
[2019-08-25] MEDS: ONDANSETRON HCL 4MG/2ML INJ IV PRN (23:53)
[2019-08-26] VITALS: BP 169/97
[2019-08-26 00:12] LABS: PLATELET ESTIMATE NORMAL
[2019-08-26] MEDS: HYDROMORPHONE HCL/PF 2MG/ML CPJ IV PRN ×3 (01:04→23:57)
[2019-08-26 04:00] VITALS: BP 140/89
[2019-08-26] MEDS: SODIUM CHLORIDE 0.9% INJ 3ML FLUSH IVF SCH ×3 (05:22→21:35)
[2019-08-26] MEDS: ENOXAPARIN 60MG/0.6ML SYR SUBCUT SCH ×2 (05:22→19:02)
[2019-08-26] MEDS: DEXT 5%/0.45% NACL 1000ML 1,000 ML IV SCH ×2 (05:24→23:38)
[2019-08-26] MEDS: HYDROCODONE/ACETAMINOPHEN 10/325MG TABLET PO PRN ×2 (05:24→10:22)
[2019-08-26 08:00] VITALS: BP 151/85
[2019-08-26] MEDS: ONDANSETRON HCL 4MG/2ML INJ IV PRN ×2 (10:20→14:15)
[2019-08-26] MEDS: METRONIDAZOLE 500 MG PREMIX 100 ML IV SCH ×2 (10:22→21:35)
[2019-08-26 12:00] VITALS: BP 136/76
[2019-08-26 12:06] LABS: HEMATOCRIT 25.7 % (36.0-48.0); HEMOGLOBIN 8.6 g/dL (12.0-16.0); MEAN CORPUSCULAR HEMOGLOBIN 29.5 pg (28.0-32.0); MEAN CORPUSCULAR VOLUME 88.2 fL (81.0-99.0); PLATELET 125 x1000/uL (130-400); RED BLOOD CELL COUNT 2.91 mill/uL (4.2-5.4); RED CELL DISTRIBUTION WIDTH 18.5 % (11.6-14.6)
[2019-08-26 16:00] VITALS: BP 112/62
[2019-08-26] MEDS: CEFTRIAXONE 1 G PREMIX 50 ML IV SCH (19:03)
[2019-08-26 20:00] VITALS: BP 130/84
[2019-08-26 21:12] LABS: VITAMIN B12 SERUM >2000 pg/mL pg/mL (211-911)
[2019-08-26] MEDS: AZITHROMYCIN 500 MG in DEXT 5% WATER 250 ML IV SCH (23:17)
[2019-08-27] VITALS: BP 117/82
[2019-08-27] MEDS ORDERED: PHYTONADIONE 5 MG/5ML ORAL SYRINGE PO NR (01:00)
[2019-08-27 04:00] VITALS: BP 118/90
[2019-08-27] MEDS: HYDROMORPHONE HCL/PF 2MG/ML CPJ IV PRN ×3 (04:09→20:27)
[2019-08-27 06:22] LABS: HEMATOCRIT. 27.6 % (36.0-48.0); HEMOGLOBIN. 9.1 g/dL (12.0-16.0); MEAN CORPUSCULAR HEMOGLOBIN 29.5 pg (28.0-32.0); MEAN CORPUSCULAR VOLUME 89.9 fL (81.0-99.0); MEAN PLATELET VOLUME 8.6 fl (7.4-10.4); PLATELET 148 x1000/uL (130-400); RED BLOOD CELL COUNT 3.07 mill/uL (4.2-5.4); RED CELL DISTRIBUTION WIDTH 18.6 % (11.6-14.6)
[2019-08-27] MEDS: SODIUM CHLORIDE 0.9% INJ 3ML FLUSH IVF SCH ×3 (06:26→21:00)
[2019-08-27] MEDS: ENOXAPARIN 60MG/0.6ML SYR SUBCUT SCH (06:27)
[2019-08-27 07:12] LABS: CHLORIDE 107 mEq/L (98-107)
[2019-08-27 08:00] VITALS: BP 137/86
[2019-08-27 08:45] LABS: PLATELET ESTIMATE NORMAL
[2019-08-27] MEDS: DEXT 5%/0.45% NACL 1000ML 1,000 ML IV SCH ×2 (09:52→12:30)
[2019-08-27] MEDS: METRONIDAZOLE 500 MG PREMIX 100 ML IV SCH ×2 (09:52→20:26)
[2019-08-27 12:00] VITALS: BP 120/70
[2019-08-27] MEDS ORDERED: POTASSIUM CHLORIDE INJ 40 MEQ in DEXT 5% WATER 250 ML IV SCH (14:00)
[2019-08-27 16:00] VITALS: BP 138/89
[2019-08-27] MEDS: CEFTRIAXONE 1 G PREMIX 50 ML IV SCH (18:44)
[2019-08-27 20:00] VITALS: BP 139/80
[2019-08-27] MEDS: AZITHROMYCIN 500 MG in DEXT 5% WATER 250 ML IV SCH (21:58)
[2019-08-28] VITALS: BP 130/85
[2019-08-28 04:00] VITALS: BP 156/86
[2019-08-28] MEDS: HYDROMORPHONE HCL/PF 2MG/ML CPJ IV PRN (06:32)
[2019-08-28] MEDS: SODIUM CHLORIDE 0.9% INJ 3ML FLUSH IVF SCH ×3 (06:32→22:54)
[2019-08-28 08:00] VITALS: BP 132/83
[2019-08-28] MEDS: METRONIDAZOLE 500 MG PREMIX 100 ML IV SCH ×3 (09:00→22:54)
[2019-08-28 12:00] VITALS: BP 128/85
[2019-08-28] MEDS: DEXT 5%/0.45% NACL 1000ML 1,000 ML IV SCH (12:30)
[2019-08-28 15:22] LABS: HEMATOCRIT. 26.9 % (36.0-48.0); HEMOGLOBIN. 8.9 g/dL (12.0-16.0); MEAN CORPUSCULAR HEMOGLOBIN 29.4 pg (28.0-32.0); MEAN CORPUSCULAR VOLUME 89.5 fL (81.0-99.0); MEAN PLATELET VOLUME 8.4 fl (7.4-10.4); PLATELET 153 x1000/uL (130-400); RED BLOOD CELL COUNT 3.01 mill/uL (4.2-5.4); RED CELL DISTRIBUTION WIDTH 19.5 % (11.6-14.6)
[2019-08-28 15:23] LABS: INR 1.8; PROTHROMBIN TIME 19.2 sec (9.6-11.0)
[2019-08-28 15:34] LABS: CHLORIDE 108 mEq/L (98-107)
[2019-08-28 16:00] VITALS: BP 131/79
[2019-08-28 16:43] LABS: PLATELET ESTIMATE NORMAL
[2019-08-28] MEDS: CEFTRIAXONE 1 G PREMIX 50 ML IV SCH (17:53)
[2019-08-28 20:00] VITALS: BP 126/80
[2019-08-28] MEDS ORDERED: POTASSIUM CHLORIDE 20MEQ/PACKET JT NR (23:00)
[2019-08-29] VITALS: BP 156/70
[2019-08-29] MEDS: AZITHROMYCIN 500 MG in DEXT 5% WATER 250 ML IV SCH (01:06)
[2019-08-29] MEDS: DEXT 5%/0.45% NACL 1000ML 1,000 ML IV SCH ×2 (01:07→16:48)
[2019-08-29] MEDS: HYDROMORPHONE HCL/PF 2MG/ML CPJ IV PRN (02:43)
[2019-08-29 04:00] VITALS: BP 134/86
[2019-08-29] MEDS: SODIUM CHLORIDE 0.9% INJ 3ML FLUSH IVF SCH ×3 (06:40→21:00)
[2019-08-29 08:00] VITALS: BP_SYST 136; BP_SYST 141; BP_DIAS 75; BP_DIAS 78
[2019-08-29 12:00] VITALS: BP 142/78
[2019-08-29 16:00] VITALS: BP 138/78
[2019-08-29] MEDS: LORAZEPAM 2MG/ML CPJ IV PRN ×2 (16:35→22:37)
[2019-08-29 20:00] VITALS: BP 138/67
[2019-08-30] VITALS: BP 93/66
[2019-08-30 04:00] VITALS: BP 152/83
[2019-08-30] MEDS: DEXT 5%/0.45% NACL 1000ML 1,000 ML IV SCH ×2 (04:13→18:34)
[2019-08-30] MEDS: LORAZEPAM 2MG/ML CPJ IV PRN ×3 (04:39→22:27)
[2019-08-30] MEDS: SODIUM CHLORIDE 0.9% INJ 3ML FLUSH IVF SCH ×3 (05:09→21:21)
[2019-08-30 05:51] LABS: CHLORIDE 112 mEq/L (98-107)
[2019-08-30 06:23] LABS: HEMATOCRIT. 23.5 % (36.0-48.0); HEMOGLOBIN. 7.8 g/dL (12.0-16.0); MEAN CORPUSCULAR HEMOGLOBIN 29.7 pg (28.0-32.0); MEAN CORPUSCULAR VOLUME 89.6 fL (81.0-99.0); MEAN PLATELET VOLUME 8.7 fl (7.4-10.4); PLATELET 153 x1000/uL (130-400); RED BLOOD CELL COUNT 2.62 mill/uL (4.2-5.4); RED CELL DISTRIBUTION WIDTH 19.1 % (11.6-14.6)
[2019-08-30 08:00] VITALS: BP 145/79
[2019-08-30 09:31] LABS: PLATELET ESTIMATE NORMAL
[2019-08-30 12:00] VITALS: BP 134/74
[2019-08-30] MEDS: POTASSIUM CHLORIDE 20MEQ TABLET SR PO SCH (15:31)
[2019-08-30 16:00] VITALS: BP 146/90
[2019-08-30 20:00] VITALS: BP 159/76
[2019-08-31] VITALS: BP 148/83
[2019-08-31 04:00] VITALS: BP 137/78
[2019-08-31] MEDS: SODIUM CHLORIDE 0.9% INJ 3ML FLUSH IVF SCH ×2 (05:00→14:40)
[2019-08-31] MEDS: LORAZEPAM 2MG/ML CPJ IV PRN (05:07)
[2019-08-31] MEDS: DEXT 5%/0.45% NACL 1000ML 1,000 ML IV SCH (05:56)
[2019-08-31 08:00] VITALS: BP 121/66
[2019-08-31] MEDS: POTASSIUM CHLORIDE 20MEQ TABLET SR PO SCH (09:14)
[2019-08-31 12:00] VITALS: BP 146/83
[2019-08-31 16:00] VITALS: BP 143/83
[2019-08-31 17:55] VITALS: BP 143/83
== END 2019-08-31 21:20 | disposition home or self-care (01) | DRG 134 ==
LOC: ER 10:52 → 5WST 16:42 → EDBEDREQTM 16:56 → EDBEDREQ 16:56 → ENRESERV 08-22 08:07
PROVIDERS: ADMIT Internal Medicine; ATTEND Internal Medicine
DX: I26.99 Other pulmonary embolism without acute cor pulmonale (principal); J96.00 Acute respiratory failure, unspecified whether with hypoxia or hypercapnia; E43 Unspecified severe protein-calorie malnutrition; C78.7 Secondary malignant neoplasm of liver and intrahepatic bile duct; R65.10 Systemic inflammatory response syndrome (SIRS) of non-infectious origin without acute organ dysfunction; J90 Pleural effusion, not elsewhere classified; C25.9 Malignant neoplasm of pancreas, unspecified; Z93.1 Gastrostomy status; D64.9 Anemia, unspecified; E78.5 Hyperlipidemia, unspecified; I10 Essential (primary) hypertension; I25.10 Atherosclerotic heart disease of native coronary artery without angina pectoris; Z90.49 Acquired absence of other specified parts of digestive tract; Z95.5 Presence of coronary angioplasty implant and graft
CPT/HCPCS: 36415; 71045; 71275; 74018; 74176; 80048; 80053; 80061; 80076; 81003; 82150; 82248; 82270; 82550; 82553; 82607; 82705; 82962; 83036; 83605; 83880; 84439; 84443; 84484; 85014; 85018; 85025; 85027; 85379; 86301; 86850; 86900; 86920; 87015; 87045; 87427; 87449; 89055; 92610; 93005; 93306; 93970; 93971; 95816; 99285; J0360; J0456; J0696; J1170; J1200; J1650; J2060; J2405; J2543; J3430; J3480; J3490; J7050; J7060; P9016; Q9963